=== PATIENT | male | born 1955 | race Caucasian/White ===

== ENCOUNTER 2020-06-25 06:54 | Outpatient (NON) | payer OTHER, SELFPAY ==
[2020-06-25 19:54] LABS: SARS-CoV-2 RNA PCR Negative
== END 2020-06-25 06:55 ==
LOC: ANHCOVIDDT 07:18
PROVIDERS: PCP Internal Medicine; Visit Provider Internal Medicine
DX: R68.89 Other general symptoms and signs (principal); Z20.828 Contact with and (suspected) exposure to other viral communicable diseases
CPT/HCPCS: 87635; C9803; U0003

== ENCOUNTER 2020-06-26 10:40 | Outpatient (CLI) | payer OTHER, SELFPAY ==
--- NOTE | ~2020-06-26 | XR_ITS ---
EXAMINATION: XR foot RT min 3V EXAM DATE: 06/26/2020 11:07 INDICATION: M79.676 - Pain in unspecified toe(s), PT Stubbed Toe X1-2 WK. Initial encounter. TECHNIQUE: Right foot dorsoplantar, lateral and oblique projections obtained and reviewed. There is no prior study for comparison. 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 The re are no acute fractures or dislocations identified. There is no subcutaneous gas. The soft tissue is unremarkable. There are no radiopaque foreign bodies. IMPRESSION: No acute osseous findings. Reviewed, dictated and finalized at location B. E AND WAGON DRIVER IMPRESSION: No acute osseous findings.
== END 2020-06-26 10:41 | disposition home or self-care (01) ==
LOC: ANHIMG 10:44
PROVIDERS: PCP Internal Medicine; Visit Provider Internal Medicine
DX: M19.071 Primary osteoarthritis, right ankle and foot (principal)
CPT/HCPCS: 73630

== ENCOUNTER 2020-08-12 12:09 | Outpatient (CLI) | payer OTHER, SELFPAY ==
--- NOTE | ~2020-08-12 | XR_ITS ---
EXAMINATION: XR chest 2V EXAM DATE: 08/12/2020 12:21 INDICATION: R05 - Cough, shortness of breath. TECHNIQUE: Frontal and lateral projections of the chest obtained and reviewed. Comparison is made to prior examination from 07/16/2019. FINDINGS: Linear right basilar scarring. The lungs are otherwise clear. There are no pleural effusio ns. The cardiomediastinal silhouette is within normal limits. There is no pneumothorax suspected. The bones and soft tissues are unremarkable. IMPRESSION: No acute cardiopulmonary findings. Reviewed, dictated and finalized at location B. MIZATION CONSULTANT
== END 2020-08-12 12:10 | disposition home or self-care (01) ==
PROVIDERS: PCP Internal Medicine; Visit Provider Internal Medicine
DX: R05 Cough (principal); R06.02 Shortness of breath; Z87.891 Personal history of nicotine dependence
CPT/HCPCS: 71046

== ENCOUNTER 2021-02-01 14:32 | Outpatient (CLI) | payer OTHER, SELFPAY ==
--- NOTE | ~2021-02-01 | CT_ITS ---
EXAMINATION: CT lung screening DATE: 02/01/2021 14:55 INDICATION: Personal history of tobacco dependence TECHNIQUE: Computed tomography (CT) of the chest was performed without intravenous contrast. The dose -length product was 135.90 mGy-cm. COMPARISON: None FINDINGS: Heart size is normal. No significant pleural or pericardial effusion. No thoracic lymphaden opathy. There is atherosclerosis of the aorta. There are a few scattered punctate calcified granuloma s. There is a 4 mm right lower lobe nodule, image 58. No endobronchial lesions. There are mild wedge-sha ped deformities of upper thoracic vertebra, likely chronic. No acute osseous abnormality. There are several liver cysts. Otherwise, the upper abdomen is grossly unremarkable. IMPRESSION: 1. Lung-RADS category 2: Benign appearance or behavior. Continue annual screening with noncontrast lo w-dose chest CT in 12 months. Reviewed, dictated and finalized at location B. IMPRESSION: 1. Lung-RADS category 2: Benign appearance or behavior. Continue annual screeni ng with noncontrast low-dose chest CT in 12 months.
== END 2021-02-01 14:33 | disposition home or self-care (01) ==
LOC: ANHIMG 14:35
PROVIDERS: PCP Internal Medicine; Visit Provider Nurse Practitioner
DX: Z87.891 Personal history of nicotine dependence (principal)
CPT/HCPCS: 71271

== ENCOUNTER → 2021-02-11 14:00 | Outpatient (REF) | payer OTHER, SELFPAY | LOC: ANHLAB 14:00 | PROVIDERS: PCP Internal Medicine; Visit Provider Nurse Practitioner | DX: C44.529 Squamous cell carcinoma of skin of other part of trunk (principal) | CPT/HCPCS: 88305 ==

== ENCOUNTER → 2021-03-25 10:50 | Outpatient (REF) | payer OTHER, SELFPAY | LOC: ANHLAB 10:50 | PROVIDERS: PCP Internal Medicine; Visit Provider Nurse Practitioner | DX: C44.529 Squamous cell carcinoma of skin of other part of trunk (principal) | CPT/HCPCS: 88305 ==

== ENCOUNTER 2021-08-26 09:30 | Observation (INO) | payer OTHER, SELFPAY ==
[2021-08-26] VITALS (12 sets, daily range): BP systolic 122–177; BP diastolic 68–96; PULSE 58–80; RESP 12–20; TEMP 36.3–37.1; O2SAT 92–100
--- NOTE | ~2021-08-26 | CT_ITS ---
EXAMINATION: CT abdomen pelvis wo con DATE: 08/26/2021 09:57 INDICATION: Inguinal pain. Hematuria. TECHNIQUE: Computed tomography (CT) of the abdomen and pelvis was performed without intravenous contr ast. Automated exposure control and iterative reconstruction technique were employed. The dose-length product was 834.94 mGy-cm. COMPARISON: CT pelvis 05/21/19, CT abdomen and pelvis 03/31/2016 FINDINGS: The visualized portions of the lung bases demonstrate mild atelectasis. No pleural effusion . The heart size is normal. There are coronary artery calcifications. No pericardial effusion. There are cysts in the liver measuring up to 7.9 cm. The gallbladder, spleen, pancreas, and adrenal glands are normal. There is a 15 mm cyst in right kidney. There is mild atrophy of left kidney. There is mod erate left hydronephrosis and hydroureter. There is a mass in distal left ureter measuring soft tissu e attenuation. The bladder is distended. There is dependent hyperdensity in the bladder, consistent w ith hematoma. The prostate is moderately enlarged. There are no dilated loops of bowel. The appendix is not visualized. There are no pathologically enlarged lymph nodes. There is prominent fat in left i nguinal canal that may be a hernia. There is a 3.4 x 2.8 cm presacral mass containing calcifications to the right of midline. There is no free intraperitoneal fluid. There is mild lumbar spondylosis and mild thoracic spondylosis. IMPRESSION: 1. Mass in distal left ureter, consistent with urothelial carcinoma. Mild atrophy of left kidney with moderate left hydronephrosis and hydroureter. 2. Dependent acute hematoma in the bladder. 3. 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 Reviewed, dictated and finalized at location B. MACHINE OPERATOR IMPRESSION: 1. Mass in distal left ureter, consistent with urothelial carcinoma. Mild atrop hy of left kidney with moderate left hydronephrosis and hydroureter. 2. Dependent acute hematoma in the bladder. 3. 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
--- NOTE | ~2021-08-26 | XR_ITS ---
EXAMINATION: XR retrograde pyelo w/stent BI EXAM DATE: 08/26/2021 15:55 INDICATION: Bilateral retrograde, left stent placement. Hematuria. Abnormal CT. TECHNIQUE: Fluoroscopy used during XR retrograde pyelo w/stent BI performed by Dr. Marco Antonio Dunham MD, urologist. The radiologist Wander Randall M.D. dictating this report of the image(s) available wa s not present for the procedure. Total fluoroscopic time of 188 seconds. The DAP for this procedure was 4.1 mGym2. A total of 216 images sent to PACS from the exam. Cine run(s) available for review. Correlation was made with CT same date. FINDINGS: Right ureter was cannulated, injected, is normal. No right-sided hydronephrosis. The left ureter was then cannulated and injected. There is a filling defect in the distal aspect of the ureter measuring about 8 mm. Proximal to the filling defect the left ureter is severely dilated. A left yamil ble-J ureteral stent was placed. Correlate with procedure note. IMPRESSION: Left distal ureteral intraluminal filling defect which could be transitional cell cancer. Severe left hydroureteronephrosis. Stent in position. Reviewed, dictated and finalized at location A. OSTRATEGY ARCHITECT DEVELOPER IMPRESSION: Left distal ureteral intraluminal filling defect which could be tra nsitional cell cancer. Severe left hydroureteronephrosis. Stent in position.
--- NOTE | 2021-08-26 09:49 | ED.MALEGU ---
HPI - Male Genitourinary General Chief complaint: Urogenital-Male Stated complaint: Blood in urine Time Seen by Provider: 08/26/21 09:45 Source: patient Mode of arrival: ambulatory Limitations: no limitations History of Present Illness HPI Narrative: Patient is a 66-year-old male complaining of blood in his urine accompanied by pressure in his bladder and dysuria that started this morning. Patient states that he has history of kidney stones. Patient denies any chest pain, shortness of breath, abdominal pain, nausea, vomiting, fever or chills. Patient denies any GI bleed. Related Data Allergies Allergy/AdvReac Type Severity Reaction Status Date / Time No Known Allergies Allergy Verified 08/26/21 10:13 Review of Systems Review of Systems: All systems reviewed & are unremarkable except as noted in HPI and below Constitutional: Constitutional: Denies body ache(s), Denies chills, Denies excessive sweating, Denies fatigue, Denies fever(s), Denies headache(s), Denies lethargy, Denies malaise, Denies weakness and Denies weight loss Eyes: Eyes: Denies blurry vision, Denies change in vision and Denies loss of vision ENT: Denies dizziness, Denies ear discharge, Denies headache(s), Denies lip swelling, Denies epistaxis, Denies nasal congestion, Denies neck pain, Denies throat swelling and Denies tongue swelling Cardiovascular: Cardiovascular: Denies chest pain, Denies chest pain at rest, Denies chest pain with activity, Denies diaphoresis, Denies rapid heart rate, Denies edema, Denies irregular heart rhythm, Denies lightheadedness, Denies palpitations, Denies dyspnea and Denies dyspnea on exertion Respiratory: Respiratory: Denies chest congestion, Denies cough, Denies hemoptysis, Denies dyspnea and Denies dyspnea on exertion Gastrointestinal: Gastrointestinal: Denies abdominal pain, Denies melena, Denies hematochezia, Denies diarrhea, Denies nausea, Denies vomiting and Denies hematemesis Musculoskeletal: Musculoskeletal: Denies abnormal gait, Denies deformity, Denies joint swelling, Denies limited range of motion, Denies neck pain and Denies numbness Neurologic: Denies Abnormal speech present, Denies abnormal gait, Denies confusion, Denies dizziness, Denies headache(s), Denies focal weakness, Denies loss of vision, Denies numbness, Denies Other visual disturbances, Denies Sensory deficit (Neuro) and Denies weakness Psychiatric: Psychiatric: Denies confusion, Denies depression, Denies auditory hallucinations, Denies homicidal ideation and Denies suicidal ideation Endocrine: Endocrine: Denies cold intolerance, Denies excessive sweating, Denies fatigue, Denies heat intolerance and Denies palpitations Hematologic/Lymphatic: Hematologic/Lymphatic: Denies easy bleeding and Denies easy bruising Allergic/Immunologic: Allergic/Immunologic: Denies lip swelling, Denies throat swelling and Denies tongue swelling PMFSH Past Medical History Medical History Hx of gout Family History Family History Father Carcinoma of colon Mother Patient's mother is Sibling Patient's sister is in good health Patient's sister is Patient's brother is in good health Patient's brother is Social History Social History Smoking packs per day: 1 Smoking cigarettes per day: 20.0 Years smoked: 1 Smoking pack-years: 1.00 Smoking status: Current every day smoker Tobacco type: cigarettes Second hand tobacco smoke exposure: Yes Alcohol intake: current Drinks per week: 20 Substance use: never Comments Past medical history: Hypertension, kidney stones Exam Const: General: cooperative, healthy appearing, comfortable, no acute distress, well developed, alert and awake; No confusion Orientation/consciousness: oriented to per
[2021-08-26 10:09] LABS: Basophils Absolute Auto 0.1 K/mm3 (0.0-0.1); Basophils Percent Auto 1.1 % (0.2-1.2); Eosinophils Absolute Auto 0.1 K/mm3 (0-0.3); Eosinophils Percent Auto 0.8 % (0-4.4); Hematocrit 45.9 % (42.0-52.0); Hemoglobin 15.8 g/dL (14.0-18.0); Immature Granulocyte Absolute 0.03 K/mm3 (0.00-0.031); Immature Granulocyte Percent A 0.4 % (0-0.5); Lymphocytes Absolute Auto 1.24 K/mm3 (0.9-3.2); Lymphocytes Percent Auto 17.4 % (18.3-44.2); Mean Corpuscular HGB Conc 34.4 g/dl (32-36); Mean Corpuscular Hemoglobin 33.2 pg (26-34); Mean Corpuscular Volume 96.4 fl (80-100); Mean Platelet Volume 9.7 fl (7.4-10.4); Monocytes Absolute Auto 0.7 K/mm3 (0.1-0.6); Monocytes Percent Auto 9.1 % (2.6-8.5); Neutrophils Absolute Auto 5.1 K/mm3 (1.3-6.7); Neutrophils Percent Auto 71.2 % (45.5-73.1); Nucleated Red Blood Cells Perc 0.4 % (0.0-0.2); Platelet Count Result 220 k/mm3 (150-375); Red Blood Count 4.76 M/mm3 (4.6-6.20); Red Cell Distribution Width 12.6 % (11.5-14.5); White Blood Count 7.1 K/mm3 (4.5-10.0)
[2021-08-26] MEDS: LACTATED RINGERS 1,000 ML 999 ML IV CONT (10:19)
[2021-08-26 10:22] LABS: INR 0.9; Partial Thromboplastin Time 28.2 SECONDS (22.3-36.8); Prothrombin Time 12.5 Seconds (11.1-14.7)
[2021-08-26 10:26] LABS: Alanine Aminotransferase 16 U/L (4-50); Albumin Level 4.5 g/dL (3.5-5.1); Alkaline Phosphatase 74 U/L (38-126); Anion Gap 10 mmol/L (8-16); Aspartate Amino Transferase 25 U/L (17-59); Bilirubin,Total 1.7 mg/dL (0.2-1.3); Blood Urea Nitrogen 25 mg/dL (9-20); Calcium 9.4 mg/dL (8.4-10.2); Carbon Dioxide 24 mmol/L (22-30); Chloride 104 mmol/L (98-107); Estimated CRCL calculation 44 ml/min; Estimated Glomerular Filt Rate 43; Glucose 106 mg/dL (65-110); Potassium 4.2 mmol/L (3.4-5.0); Sodium 138 mmol/L (137-145)
[2021-08-26 10:36] LABS: Add Urine Microscopic? YES; Appearance Urine Cloudy (Clear); Bilirubin Urine Negative (Negative); Blood Urine 3+ (Negative); Color Urine Red (Yellow); Glucose Urine UA Negative (Negative); Ketones Urine Negative (Negative); Leukocyte Esterase Ur Negative LEU/UL (Negative); Nitrate Urine Negative (Negative); Protein Urine 2+ mg/dL (Negative); RBC Urine >75 /hpf (0-2); Urobilinogen Urine Negative mg/dL (<2.0); WBC Clumps Urine Present /HPF; WBC Urine 31-50 /hpf
[2021-08-26] MEDS: LACTATED RINGERS 1,000 ML 125 ML IV CONT (13:00)
[2021-08-26] MEDS: PROMETHAZINE HCL 25 MG/ML AMPUL 12.5 MG IV PUSH (13:01)
[2021-08-26] MEDS: HYDROmorphone HCL INJ (*CRX) 1 MG/ML SYR 0.5 MG IV PUSH (13:07)
--- NOTE | 2021-08-26 13:16 | PM.IMHP ---
H&P: HPI History of Present Illness Date/Time: 08/26/21 13:16 this is a 66-year-old male patient to came to the emergency room today because he was having blood in his urine. The patient stated that several days ago he had blood in his urine but it cleared up. However today it did not clear up. The patient stated that he has had a history of kidney stones in the past study passed on his own. The patient is complaining of having pressure in his bladder area and difficulty urinating since this morning. The patient has not had any recent injury or on any blood thinners. Abdominal pelvis CT was read as the following 1. Mass in distal left ureter, consistent with urothelial carcinoma. Mild atrophy of left kidney with moderate left hydronephrosis and hydroureter. 2. Dependent acute hematoma in the bladder. 3. 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 Urology has been consulted and has already seen the patient. The patient was given IV fluids, Phenergan, Dilaudid and started on Ancef. The patient is being admitted to observation status on the date of service of 08/26/2021. Chief Complaint: Hematuria Review of Systems Review of Systems: All systems reviewed & are unremarkable except as noted in HPI and below Constitutional: Constitutional: Reports as per HPI and Reports no additional constitutional complaints Eyes: Eyes: Reports as per HPI and Reports no additional eye complaints ENT: Reports system reviewed and no additional complaints, except as documented and Reports Normal hearing present Cardiovascular: Cardiovascular: Reports no additional cardiovascular complaints Respiratory: Respiratory: Reports no additional respiratory complaints and Reports no additional respiratory complaints Gastrointestinal: Gastrointestinal: Reports as per HPI and Reports no additional gastrointestinal complaints Musculoskeletal: Musculoskeletal: Reports no additional musculoskeletal complaints Integumentary/Breasts: Skin/Breast: Reports system reviewed and no additional complaints, except as docu and Reports as per HPI Neurologic: Reports system reviewed and no additional complaints, except as documented, Reports as per HPI and Reports Normal hearing present Psychiatric: Psychiatric: Reports no additional psychiatric complaints and Reports as per HPI Endocrine: Endocrine: Reports no additional endocrine complaints Hematologic/Lymphatic: Hematologic/Lymphatic: Reports no additional hematologic/lymphatic complaints Allergic/Immunologic: Allergic/Immunologic: Reports no additional allergic/immunologic complaints FOR[facility]LY [facility] Past Medical History Medical History (Updated 08/26/21 @ 15:14 by Alysia Rees NP) Chest skin lesion Chronic back pain Chronic pain of both knees Elevated serum creatinine Essential (primary) hypertension History of colon polyps Hx of gout Hypothyroidism Medication monitoring encounter Mixed hyperlipidemia Squamous cell carcinoma of skin of chest Surgical History Surgical History (Updated 08/26/21 @ 15:14 by Alysia Rees NP) H/O arthroscopic knee surgery Left knee H/O rectal polypectomy History of appendectomy History of removal of pigmented skin lesion Hx of knee surgery Right leg surgery after impalement Family History Family History (Updated 08/26/21 @ 15:26 by Alysia Rees NP) Father Carcinoma of colon Mother Patient's mother is Sibling Patient's sister is Cancer Patient's brother is Cancer Social History Social History (Updated 08/26/21 @ 15:28 by Alysia Rees NP) Social History: The patient lives with his who is the durable power patent prosecution attorney for healthcare. The patient has 3 children. 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 The patient continues to smoke at least a pack a
[2021-08-26] MEDS: LACTATED RINGERS 1,000 ML 30 ML IV CONT ×2 (14:15→15:48)
--- NOTE | 2021-08-26 14:25 | WPDANESEPPF ---
Anes - Initial Pre Proc Eval Procedure: Operation Date: 08/26/21 15:15 Proposed Procedures p Cystoscopy, Evacuation Bladder Clot, Bilateral Retrograde Pyelogram, Left Ureteroscopy - Marco Antonio Dunham MD Date/Time: 08/26/21 14:25 Pre Op Diagnosis: Blood in urine Patient Data Age: 66 Gender: M Height: 1.83 m Weight: 100 kg Last Vital Signs Temp 36.3 C L 08/26/21 09:34 Pulse 80 08/26/21 12:20 Resp 14 08/26/21 12:20 BP 153/76 H 08/26/21 12:20 Pulse Ox 98 08/26/21 12:20 Allergies Allergy/AdvReac Type Severity Reaction Status Date / Time No Known Allergies Allergy Verified 08/26/21 14:17 Home Medications Medication Instructions Recorded Confirmed Type amlodipine 10 mg tablet See Rx Instructions .ROUTE 01/28/21 08/26/21 Rx .COMPLEX #90 tablet allopurinol 100 mg tablet 100 mg PO DAILY #90 tablet 03/16/21 08/26/21 Rx gabapentin 100 mg capsule 100 mg PO TID #90 cap 05/24/21 08/26/21 Rx levothyroxine 75 mcg tablet See Rx Instructions .ROUTE 08/09/21 08/26/21 Rx .COMPLEX #90 tablet atorvastatin 20 mg tablet 20 mg PO DAILY #90 tablet 08/12/21 08/26/21 Rx Laboratory Tests 08/26/21 08/26/21 08/26/21 10:01 10:01 10:01 WBC 7.1 K/mm3 K/mm3 (4.5-10.0) RBC 4.76 M/mm3 M/mm3 (4.6-6.20) Hgb 15.8 g/dL g/dL (14.0-18.0) Hct 45.9 % % (42.0-52.0) MCV 96.4 fl fl (80-100) MCH 33.2 pg pg (26-34) MCHC 34.4 g/dl g/dl (32-36) RDW 12.6 % % (11.5-14.5) Plt Count 220 k/mm3 k/mm3 (150-375) MPV 9.7 fl fl (7.4-10.4) Immature Gran % (Auto) 0.4 % % (0-0.5) Neut % (Auto) 71.2 % % (45.5-73.1) Lymph % (Auto) 17.4 % L % (18.3-44.2) Mcminn % (Auto) 9.1 % H % (2.6-8.5) Eos % (Auto) 0.8 % % (0-4.4) Baso % (Auto) 1.1 % % (0.2-1.2) Lymph # (Auto) 1.24 K/mm3 K/mm3 (0.9-3.2) Mcminn # (Auto) 0.7 K/mm3 H K/mm3 (0.1-0.6) Eos # (Auto) 0.1 K/mm3 K/mm3 (0-0.3) Baso # (Auto) 0.1 K/mm3 K/mm3 (0.0-0.1) Abs Immat Gran (auto) 0.03 K/mm3 K/mm3 (0.00-0.031) Absolute Neuts (auto) 5.1 K/mm3 K/mm3 (1.3-6.7) Absolute Nucleated RBC 0.0 K/mm3 K/mm3 (0.0-0.012) Nucleated RBC % 0.4 % H % (0.0-0.2) PT 12.5 Seconds Seconds (11.1-14.7) INR 0.9 APTT 28.2 SECONDS SECONDS (22.3-36.8) Sodium 138 mmol/L mmol/L (137-145) Potassium 4.2 mmol/L mmol/L (3.4-5.0) Chloride 104 mmol/L mmol/L (98-107) Carbon Dioxide 24 mmol/L mmol/L (22-30) Anion Gap 10 mmol/L mmol/L (8-16) BUN 25 mg/dL H mg/dL (9-20) Creatinine 1.60 mg/dL H mg/dL (0.7-1.3) Estim Creat Clear Calc 44 ml/min ml/min Estimated GFR 43 L (59 - ) Glucose 106 mg/dL mg/dL (65-110) Calcium 9.4 mg/dL mg/dL (8.4-10.2) Total Bilirubin 1.7 mg/dL H mg/dL (0.2-1.3) AST 25 U/L U/L (17-59) ALT 16 U/L U/L (4-50) Alkaline Phosphatase 74 U/L U/L (38-126) Total Protein 7.0 g/dL g/dL (6.3-8.2) Albumin 4.5 g/dL g/dL (3.5-5.1) Urine Color Urine Appearance Urine pH Ur Specific Filley Urine Protein Urine Glucose (UA) Urine Ketones Ur Blood (Man) Urine Nitrate Urine Bilirubin Urine Urobilinogen Leukocyte Esterase Rfl Urine RBC Urine WBC Urine WBC Clumps 08/26/21 10:01 WBC RBC Hgb Hct MCV MCH MCHC RDW Plt Count MPV Immature Gran % (Auto) Neut % (Auto) Lymph % (Auto) Mcminn % (Auto) Eos % (Auto) Baso % (Auto) Lymph #
--- NOTE | 2021-08-26 14:36 | PM.HPGS ---
History of Present Illness History of Present Illness Consent: Risks, benefits, and alternatives have been discussed and questions answered. Patient agrees to proceed with procedure. Chief complaint: Blood in urine Narrative: Travis Bello is a 66 year old male, without prior known urological history, presents to the ER today with progressively bloody urine. He says he 1st noticed this briefly approximately 12 days ago. This was not precipitated by identifiable injury or strain and was not associated with dysuria urgency frequency. He events he has started to pass some small clots which led to some abstract sense of obstruction and incomplete bladder emptying. He has no prior sense of difficulty voiding in past. Because of the darkened urine he presented to the ER where a CT scan of the abdomen and pelvis without contrast shows possible mass in his left distal ureter with left hydronephrosis and mild left renal atrophy. Bladder appears to be incomplete emptying and there was clot in the bladder. Review of Systems Cardiovascular: Cardiovascular: Denies chest pain, Denies lightheadedness, Denies palpitations and Denies dyspnea Respiratory: Respiratory: Denies dyspnea Gastrointestinal: Gastrointestinal: Denies diarrhea, Denies nausea and Denies vomiting Genitourinary: Genitourinary: Denies hematuria and Denies dysuria Endocrine: Endocrine: Denies palpitations PMFSH Past Medical History Medical History Hx of gout Surgical History Surgical History History of appendectomy Family History Family History Father Carcinoma of colon Mother Patient's mother is Sibling Patient's sister is in good health Patient's sister is Patient's brother is in good health Patient's brother is Social History Social History Smoking packs per day: 1 Smoking cigarettes per day: 20.0 Years smoked: 1 Smoking pack-years: 1.00 Smoking status: Current every day smoker Tobacco type: cigarettes Second hand tobacco smoke exposure: Yes Alcohol intake: current Drinks per week: 20 Substance use: never Meds Home Medications and Allergies Home Medications Medication Instructions Recorded Confirmed Type amlodipine 10 mg tablet See Rx Instructions .ROUTE 01/28/21 08/26/21 Rx .COMPLEX #90 tablet allopurinol 100 mg tablet 100 mg PO DAILY #90 tablet 03/16/21 08/26/21 Rx gabapentin 100 mg capsule 100 mg PO TID #90 cap 05/24/21 08/26/21 Rx levothyroxine 75 mcg tablet See Rx Instructions .ROUTE 08/09/21 08/26/21 Rx .COMPLEX #90 tablet atorvastatin 20 mg tablet 20 mg PO DAILY #90 tablet 08/12/21 08/26/21 Rx Allergies Allergy/AdvReac Type Severity Reaction Status Date / Time No Known Allergies Allergy Verified 08/26/21 14:17 Vital Signs Vital Signs - 24 hr 08/26/21 09:34 08/26/21 12:20 08/26/21 14:23 Temperature 97.4 F L 98.8 F Pulse Rate 77 80 68 Respiratory Rate 14 14 16 Blood Pressure 170/74 H 153/76 H 132/77 Pulse Oximetry 98 98 97 Exam Const: General: no acute distress Resp: Effort & Inspection: normal respiratory effort GI: Inspection: non-distended GI Palp: No abdominal tenderness and No Guarding due to palpation present (GI) Auscultation: normal bowel sounds Assessment and Plan Assessment and plan (1) Clot hematuria: Code(s): R31.0 - Gross hematuria Status: Acute (2) Mass of ureter: Code(s): N28.89 - Other specified disorders of kidney and ureter Status: Acute (3) Gross hematuria: Code(s): R31.0 - Gross hematuria Status: Acute Assessment and Plan: Cystoscopy with clot evacuation, bilateral retrograde pyelography with left ureteroscopy.
--- NOTE | 2021-08-26 14:39 | WPDHPUPDATE1 ---
History and Physical Update Update Date/Time: 08/26/21 14:39 History and Physical has been reviewed, including an updated exam of the patient. There are NO changes in the patient's condition. Risks, benefits, and alternatives have been discussed and questions answered. Patient agrees to proceed with procedure.
[2021-08-26] MEDS: ceFAZolin 2 GM/D5W 50 ML 2 GM/50 ML BAG IVPB (14:41)
[2021-08-26] MEDS: LIDOCAINE HCL 2% GEL UROJET 10 ML PKG MUCOUS MEM (15:00)
--- NOTE | 2021-08-26 15:42 | W.PM.PROC2 ---
Procedure Note - Detailed Date of Procedure 08/26/21 Pre-op Diagnosis Gross hematuria, clot urinary retention in possible left distal ureteral neoplasm Post-op Diagnosis other ( Gross hematuria clot urinary retention and urothelial neoplasm of the distal ureter) Procedure Performed Cystoscopy, clot evacuation, bilateral retrograde pyelogram, left ureteroscopy with biopsy and left ureteral stent placement Surgeon Marco Antonio Dunham MD Anesthesia general Description of Procedure Patient brought the office was prepped draped in routine sterile fashion while in dorsal lithotomy position. Cystoscopy is undertaken with a 21 F rigid cystoscope. There was no urethral stricture. He had moderate lateral lobe hyperplasia of the prostate with a 2.5 cm prostatic urethra. He has a small median lobe. Is a large clot in the dependent portion of bladder which was evacuated with an TUMI syringe. Bladder was then very carefully inspected and found to be without additional foreign body and there was no signs of neoplasm. The mucosa is without hyperemia. There was slight trabeculation without cellular diverticular formation. Is a single orthotopic ureteral orifice bilaterally. Right retrograde pyelography with an 8 F bulb-tip catheter shows no filling defects or points of obstruction. Left retrograde pyelography shows a wine glass filling defect in the distal ureter, consistent with urothelial neoplasm. 0.035 in glidewire was advanced into left renal pelvis and distal ureter was dilated with an 8 F 10 F dilator. Ureteroscopy was undertaken with both a semi-rigid in a 7.5 F digital flexible cystoscope. There was obvious urothelial neoplasm involving the distal ureter and extending to the sacral arcuate line. Biopsies were obtained with a disposable biopsy forceps. With proximal ureteroscopy the more proximal ureter and collecting system were endoscopically normal without evidence of hyperemia or neoplasm. Because of the patient's obstruction and ongoing hematuria I did opt to place a 4.8 F variable stent length ureteral stent with the proximal coil in the renal pelvis and distal coil in the bladder. Scopes and wires removed. I placed a 20 F 3-way catheter to continuous irrigation. Estimated Blood Loss 0 Drains Yes Packing No Pathology yes Complications No immediate complications Condition stable Disposition PACU
[2021-08-26] MEDS: fentaNYL CITRATE INJ (*CRX) 100 MCG/2 ML VIAL 25 MCG IV PUSH ×4 (17:03→17:28)
[2021-08-26] MEDS: HYDROcodone/acetaminophen (*CRX) 5-325 MG TABLET 1 TAB PO ×2 (19:15→23:43)
[2021-08-26 19:33] LABS: Hematocrit 40.9 % (42.0-52.0); Hemoglobin 13.9 g/dL (14.0-18.0)
[2021-08-26] MEDS: GABAPENTIN 100 MG CAPSULE PO (21:00)
[2021-08-26] MEDS: amLODIPine BESYLATE 5 MG TABLET 10 MG PO (21:11)
[2021-08-26] MEDS: allopurinoL 100 MG TABLET PO (21:11)
[2021-08-26] MEDS: ATORVASTATIN 20 MG TABLET PO (21:11)
[2021-08-26] MEDS: MORPHINE SULFATE (*CRX) 2 MG/ML INJ IV PUSH (21:19)
[2021-08-27 00:05] VITALS: BP 118/72; PULSE 60; RESP 20
[2021-08-27 01:36] LABS: Hemoglobin 13.3 g/dL (14.0-18.0)
[2021-08-27] MEDS: HYDROcodone/acetaminophen (*CRX) 5-325 MG TABLET 1 TAB PO (03:43)
[2021-08-27 04:00] VITALS: BP 110/70; PULSE 76; RESP 20
[2021-08-27 04:43] LABS: Basophils Absolute Auto 0.1 K/mm3 (0.0-0.1); Basophils Percent Auto 0.7 % (0.2-1.2); Eosinophils Absolute Auto 0.1 K/mm3 (0-0.3); Eosinophils Percent Auto 1.5 % (0-4.4); Hematocrit 38.9 % (42.0-52.0); Hemoglobin 13.5 g/dL (14.0-18.0); Immature Granulocyte Absolute 0.03 K/mm3 (0.00-0.031); Immature Granulocyte Percent A 0.4 % (0-0.5); Lymphocytes Absolute Auto 1.35 K/mm3 (0.9-3.2); Lymphocytes Percent Auto 18.4 % (18.3-44.2); Mean Corpuscular HGB Conc 34.7 g/dl (32-36); Mean Corpuscular Volume 95.1 fl (80-100); Mean Platelet Volume 9.7 fl (7.4-10.4); Monocytes Absolute Auto 0.7 K/mm3 (0.1-0.6); Monocytes Percent Auto 9.1 % (2.6-8.5); Neutrophils Absolute Auto 5.1 K/mm3 (1.3-6.7); Neutrophils Percent Auto 69.9 % (45.5-73.1); Platelet Count Result 192 k/mm3 (150-375); Red Blood Count 4.09 M/mm3 (4.6-6.20); Red Cell Distribution Width 12.5 % (11.5-14.5); White Blood Count 7.3 K/mm3 (4.5-10.0)
[2021-08-27 04:58] LABS: Alanine Aminotransferase 11 U/L (4-50); Albumin Level 3.5 g/dL (3.5-5.1); Alkaline Phosphatase 56 U/L (38-126); Anion Gap 5 mmol/L (8-16); Aspartate Amino Transferase 20 U/L (17-59); Bilirubin,Total 1.3 mg/dL (0.2-1.3); Blood Urea Nitrogen 17 mg/dL (9-20); Calcium 8.4 mg/dL (8.4-10.2); Carbon Dioxide 26 mmol/L (22-30); Chloride 104 mmol/L (98-107); Estimated CRCL calculation 41 ml/min; Estimated Glomerular Filt Rate 40; Glucose 91 mg/dL (65-110); Magnesium 1.9 mg/dL (1.6-2.3); Potassium 4.1 mmol/L (3.4-5.0); Sodium 135 mmol/L (137-145)
[2021-08-27 05:01] LABS: Lactic Acid Reflex 0.6 mmol/L (0.7-2.1)
--- NOTE | 2021-08-27 07:19 | WPDUROPN2 ---
Progress Note: A&P Assessment and Plan (1) Clot hematuria: Code(s): R31.0 - Gross hematuria Status: Acute (2) Mass of ureter: Code(s): N28.89 - Other specified disorders of kidney and ureter Status: Acute Assessment and Plan: Urine is perfectly clear this morning. Will stop CBI and plan a voiding trial later this morning. Await final ureteral biopsies. Follow-up discussion plan for next week. Subjective Subjective Date/Time Seen: 08/27/21 07:19 Other than mild catheter irritation, patient is doing well. 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 Review of Systems Cardiovascular: Cardiovascular: Denies chest pain, Denies lightheadedness, Denies palpitations and Denies dyspnea Respiratory: Respiratory: Denies dyspnea Gastrointestinal: Gastrointestinal: Denies diarrhea, Denies nausea and Denies vomiting Genitourinary: Genitourinary: Denies hematuria and Denies dysuria Endocrine: Endocrine: Denies palpitations Exam Const: General: no acute distress Resp: Effort & Inspection: normal respiratory effort GI: Inspection: non-distended GI Palp: No abdominal tenderness and No Guarding due to palpation present (GI) Auscultation: normal bowel sounds Objective Data Vital Signs Vital Signs: Vital Signs - 24 hr 08/26/21 09:34 08/26/21 12:20 08/26/21 14:23 Temperature 97.4 F L 98.8 F Pulse Rate 77 80 68 Respiratory Rate 14 14 16 Blood Pressure 170/74 H 153/76 H 132/77 Pulse Oximetry 98 98 97 08/26/21 15:48 08/26/21 16:00 08/26/21 16:15 Temperature 98.0 F Pulse Rate 76 60 58 L Respiratory Rate 14 14 12 Blood Pressure 177/92 H 168/93 H 155/96 H Pulse Oximetry 100 100 100 08/26/21 16:30 08/26/21 16:45 08/26/21 17:00 Temperature Pulse Rate 66 62 66 Respiratory Rate 12 14 14 Blood Pressure 158/92 H 169/95 H 151/89 H Pulse Oximetry 97 93 92 08/26/21 17:15 08/26/21 17:30 08/26/21 20:00 Temperature Pulse Rate 70 66 58 L Respiratory Rate 14 18 20 Blood Pressure 151/83 H 153/88 H 122/68 Pulse Oximetry 93 93 08/27/21 00:05 08/27/21 04:00 Temperature Pulse Rate 60 76 Respiratory Rate 20 20 Blood Pressure 118/72 110/70 Pulse Oximetry Intake/Output Intake/Output: Intake & Output 08/24/21 08/25/21 08/26/21 08/27/21 23:59 23:59 23:59 23:59 Intake Total 7300 Output Total 5900 Balance 1400 Meds/Results Medications: Active Medications Generic Name Dose Route Start Last Admin Trade Name Freq PRN Reason Stop Dose Admin Hydrocodone Bitart/Acetaminophen 1 tab 08/26/21 17:49 08/27/21 03:43 Hydrocodone/Acetaminophen (*Crx) 5-325 Mg Tablet PO 1 tab Q4H PRN Administration Pain Rated 1-6 Allopurinol 100 mg 08/26/21 21:00 08/26/21 21:11 Allopurinol 100 Mg Tablet PO 100 mg HS MICHAEL Administration Amlodipine Besylate 10 mg 08/26/21 21:00 08/26/21 21:11 Amlodipine Besylate 5 Mg Tablet PO 10 mg HS MICHAEL Administration Atorvastatin Calcium 20 mg 08/26/21 21:00 08/26/21 21:11 Atorvastatin 20 Mg Tablet PO 20 mg HS MICHAEL Administration Cephalexin HCl 500 mg 08/27/21 13:00 Cephalexin 500 Mg Capsule PO QID MICHAEL Docusate Sodium 100 mg 08/26/21 17:00 08/26/21 20:47 Docusate Sodium 100 Mg Capsule PO Not Given BID MICHAEL Gabapentin 100 mg 08/26/21 22:00 08/26/21 21:00 Gabapentin 100 Mg Capsule PO 100 mg Q8HR MICHAEL Administration Hyoscyamine 0.125 mg 08/26/21 17:49 Hyoscyamine Sulfate 0.125 Mg Tablet SUBLINGUAL Q6H PRN Bladder Spasm Morphine Sulfate 2 mg 08/26/21 17:49 08/26/21 21:19 Morphine Sulfate (*Crx) 2 Mg/Ml Inj IV PUSH 2 mg Q2H PRN Administration Pain Rated 7-10 Naloxone HCl 0.1 mg 08/26/21 17:49 Naloxone Hcl 0.4 Mg/Ml Vial IV PUSH Q2M PRN Opiate Reversal Ondansetron HCl 4 mg 08/26/21 17:49 Ondansetron Inj 4 Mg/2 Ml Vial IV PUSH Q12H PRN
[2021-08-27 07:34] VITALS: BP 137/66; PULSE 71; RESP 16; TEMP 36.9; O2SAT 94
[2021-08-27 07:40] VITALS: O2SAT 94
--- NOTE | 2021-08-27 07:48 | PM.IMPN ---
Progress Note: A&P Assessment and Plan (1) Mass of ureter: Code(s): N28.89 - Other specified disorders of kidney and ureter Status: Acute Assessment and Plan: 1. Mass in distal left ureter, consistent with urothelial carcinoma. Mild atrophy of left kidney with moderate left hydronephrosis and hydroureter. 2. Dependent acute hematoma in the bladder. 3. 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 Urology has been consulted. (2) Essential (primary) hypertension: Code(s): I10 - Essential (primary) hypertension Status: Chronic Assessment and Plan: Continue with amlodipine. Monitor blood pressure closely as patient is receiving pain medication. (3) Mixed hyperlipidemia: Code(s): E78.2 - Mixed hyperlipidemia Status: Chronic Assessment and Plan: Continue with atorvastatin. (4) Hypothyroidism: Code(s): E03.9 - Hypothyroidism, unspecified Status: Chronic Assessment and Plan: Continue with levothyroxine. (5) Chronic back pain: Code(s): M54.9 - Dorsalgia, unspecified; G89.29 - Other chronic pain Status: Chronic Assessment and Plan: Continue with gabapentin (6) Hx of gout: Code(s): Z87.39 - Personal history of other diseases of the musculoskeletal system and connective tissue Status: Acute Assessment and Plan: Continue with allopurinol Subjective Date/time seen: 08/27/21 07:48 Retrograde Pyelogram: Left distal ureteral intraluminal filling defect which could be transitional cell cancer. Severe left hydroureteronephrosis. Stent in position. Review of Systems Review of Systems: All systems reviewed & are unremarkable except as noted in HPI and below Constitutional: Constitutional: Reports as per HPI and Reports no additional constitutional complaints Eyes: Eyes: Reports as per HPI and Reports no additional eye complaints ENT: Reports system reviewed and no additional complaints, except as documented and Reports Normal hearing present Cardiovascular: Cardiovascular: Reports no additional cardiovascular complaints Respiratory: Respiratory: Reports no additional respiratory complaints and Reports no additional respiratory complaints Gastrointestinal: Gastrointestinal: Reports as per HPI and Reports no additional gastrointestinal complaints Musculoskeletal: Musculoskeletal: Reports no additional musculoskeletal complaints Integumentary/Breasts: Skin/Breast: Reports system reviewed and no additional complaints, except as docu and Reports as per HPI Neurologic: Reports system reviewed and no additional complaints, except as documented, Reports as per HPI and Reports Normal hearing present Psychiatric: Psychiatric: Reports no additional psychiatric complaints and Reports as per HPI Endocrine: Endocrine: Reports no additional endocrine complaints Hematologic/Lymphatic: Hematologic/Lymphatic: Reports no additional hematologic/lymphatic complaints Allergic/Immunologic: Allergic/Immunologic: Reports no additional allergic/immunologic complaints Exam Const: General: cooperative, healthy appearing, comfortable, no acute distress, well developed, alert, awake and Physically active Nutritional Appearance: average body habitus and well nourished Orientation/consciousness: oriented to person, oriented to place, oriented to time and patient oriented x3 Limitations: no limitations HENMT: Head: normal to inspection, No palpable skull fracture present, normocephalic and atraumatic Ears: hearing grossly normal bilaterally and external ears normal General nose exam: Normal external nose present Eyes: General: appearance normal, both eyes and all related structures Alignment and Position: alignment normal Periorbital: periorbital findings normal Eyelids: eyelids normal Conjunctivae: conjunctivae normal Sclera: sclerae normal Co
[2021-08-27] MEDS: GABAPENTIN 100 MG CAPSULE PO (08:45)
[2021-08-27] MEDS: DOCUSATE SODIUM 100 MG CAPSULE PO (08:45)
[2021-08-27 09:36] LABS: Hematocrit 40.8 % (42.0-52.0); Hemoglobin 14.2 g/dL (14.0-18.0)
--- NOTE | 2021-08-27 10:07 | PM.DS ---
DS: Admitting Diagnosis Discharge Date 08/27/2021 @1005 Admitting Diagnosis Gross hematuria DS: Discharge Diagnosis Discharge Diagnosis (1) Mass of ureter: Code(s): N28.89 - Other specified disorders of kidney and ureter Status: Acute (2) Gross hematuria: Code(s): R31.0 - Gross hematuria Status: Acute DS: Summary Hospital Course Hospital Course: Patient admitted through the ER with progressive hematuria. CT scan of the abdomen and pelvis without contrast suggested a neoplasm in his distal left ureter with clot in his bladder. That same day underwent cystoscopy with clot evacuation. Cystoscopy showed a normal bladder. Right retrograde pyelography was unremarkable. Left ureteroscopy, however, showed a neoplasm arising at the sacral arcuate line and extending to the left ureterovesical junction. The more proximal ureter collecting system were normal. Because he was obstructed I decided to place a left ureteral stent. He was watched overnight the following morning his catheter was removed. He voided clear urine. Arrangements will be made for consultation once the ureteral biopsies her available. Time Spent with Patient Time attestation: Total time spent providing and/or coordinating discharge services: 15min. Exam Const: General: no acute distress Resp: Effort & Inspection: normal respiratory effort GI: Inspection: non-distended GI Palp: No abdominal tenderness and No Guarding due to palpation present (GI) Auscultation: normal bowel sounds DS: Data Data Completed and Pending Pending studies at discharge: Pending at discharge 08/26/21 15:34 Surgical [PTH] Routine Labs on day of discharge: Labs from last 24 hours 08/27/21 08/27/21 08/27/21 09:30 04:26 04:26 WBC RBC Hgb 14.2 Hct 40.8 L MCV MCH MCHC RDW Plt Count MPV Immature Gran % (Auto) Neut % (Auto) Lymph % (Auto) Motley % (Auto) Eos % (Auto) Baso % (Auto) Lymph # (Auto) [place]ley # (Auto) Eos # (Auto) Baso # (Auto) Abs Immat Gran (auto) Absolute Neuts (auto) Absolute Nucleated RBC Nucleated RBC % PT INR APTT Sodium Potassium Chloride Carbon Dioxide Anion Gap BUN Creatinine Estim Creat Clear Calc Estimated GFR Glucose Lactic Acid 0.6 L Calcium Magnesium Total Bilirubin AST ALT Alkaline Phosphatase Total Protein Albumin TSH (Reflex) 2.750 Urine Color Urine Appearance Urine pH Ur Specific [place] Urine Protein Urine Glucose (UA) Urine Ketones Ur Blood (Man) Urine Nitrate Urine Bilirubin Urine Urobilinogen Leukocyte Esterase Rfl Urine RBC Urine WBC Urine WBC Clumps 08/27/21 08/27/21 08/27/21 04:26 04:26 01:32 WBC 7.3 RBC 4.09 L Hgb 13.5 L 13.3 L Hct 38.9 L 39.0 L MCV 95.1 MCH 33.0 MCHC 34.7 RDW 12.5 Plt Count 192 MPV 9.7 Immature Gran % (Auto) 0.4 Neut % (Auto) 69.9 Lymph % (Auto) 18.4 Motley % (Auto) 9.1 H Eos % (Auto) 1.5 Baso % (Auto) 0.7 Lymph # (Auto) 1.35 Motley # (Auto) 0.7 H Eos # (Auto) 0.1 Baso # (Auto) 0.1 Abs Immat Gran (auto) 0.03 Absolute Neuts (auto) 5.1 Absolute Nucleated RBC 0.0 Nucleated RBC % 0.0 PT INR APTT Sodium 135 L Potassium 4.1 Chloride 104 Carbon Dioxide 26 Anion Gap 5 L BUN 17 Creatinine 1.70 H Estim Creat Clear Calc 41 Estimated GFR 40 L Glucose 91 Lactic Acid Calcium 8.4 Magnesium 1.9 Total Bilirubin 1.3 AST 20 ALT 11 Alkaline Phosphatase 56 Total Protein 6.0 L Albumin 3.5 TSH (Reflex) Urine Color Urine Appearance Urine pH Ur Specific [place] Urine Protein Urine Glucose (UA) Urine Ketones Ur Blood (Man) Urine Nitrate Urine Bilirubin Urine Urobilinogen Leukocyte Esterase Rfl U
--- NOTE | 2021-08-27 18:38 | PM.EVENT ---
Event Note Event Note Event Note: Patient was discharged early this morning, PRIOR to Hospitalist seeing patient. Urologist completed H & P as well as patient's Discharge.
== END 2021-08-27 10:32 | disposition home or self-care (01) ==
LOC: ANHED 12:26 → ANHSUROVER 17:51 → ANHED 19:43 → ANHSUROVER 08-27 07:25
PROVIDERS: Nurse Practitioner; Urology; Admitting Provider Internal Medicine; Emergency Provider Emergency Medicine; PCP Internal Medicine; Visit Provider Internal Medicine
PROC: (CPT 52352; principal; 2021-08-26 15:15)
DX: N28.89 Other specified disorders of kidney and ureter (principal); R31.0 Gross hematuria; N13.39 Other hydronephrosis; I10 Essential (primary) hypertension; E03.9 Hypothyroidism, unspecified; E78.2 Mixed hyperlipidemia; M10.9 Gout, unspecified; M54.9 Dorsalgia, unspecified; G89.29 Other chronic pain; F17.210 Nicotine dependence, cigarettes, uncomplicated; E66.9 Obesity, unspecified; Z68.29 Body mass index [BMI] 29.0-29.9, adult
CPT/HCPCS: 52354; 52332; 36415; 74176; 74420; 80053; 81001; 83605; 83735; 84443; 85014; 85018; 85025; 85610; 85730; 87086; 87088; 88305; 96361; 96374; 96375; 99285; A9270; C1758; C1769; C1887; C2617; G0378; J0690; J1100; J1170; J2270; J2405; J2550; J2704; J3010; J7120; Q9966

== ENCOUNTER 2021-09-03 08:10 | Outpatient (CLI) | payer OTHER, SELFPAY ==
--- NOTE | ~2021-09-03 | NM_ITS ---
EXAMINATION: NM bone scan whole body DATE: 09/03/2021 13:57 INDICATION: Carcinoma of the left ureter TECHNIQUE: 25.7 mCi Tc-99m HDP was administered intravenously. Delayed whole-body scintigrams were o btained. COMPARISON: CT abdomen and pelvis dated 08/26/2021 FINDINGS: Mild likely degenerative joint centered uptake at the bilateral first metatarsophalangeal joints, qamar ateral mid feet and bilateral acromioclavicular joints. No other suspicious foci of abnormal bone upt denis. Asymmetric mild increased uptake at the left renal pelvis likely residual pelviectasis related t o reported carcinoma of the left ureter but not indicative of the same degree of hydronephrosis as on the prior CT likely related to interval ureteral stenting. Small focus of mild likely extravasated s oft tissue activity at the left antecubital fossa. IMPRESSION: 1. No evident osseous metastatic disease. Reviewed, dictated and finalized at location A. ING MACHINE OPERATOR
== END 2021-09-03 08:11 | disposition home or self-care (01) ==
LOC: ANHIMG 08:13
PROVIDERS: PCP Internal Medicine; Visit Provider Urology
DX: C66.2 Malignant neoplasm of left ureter (principal)
CPT/HCPCS: 78306; A9561

== ENCOUNTER 2021-09-21 09:48 | Outpatient (CLI) | payer OTHER, SELFPAY ==
--- NOTE | ~2021-09-21 | XR_ITS ---
EXAMINATION: XR chest 2V EXAM DATE: 09/21/2021 08:47 INDICATION: C67.9 - Malignant neoplasm of bladder, unspecified. TECHNIQUE: Frontal and lateral projections of the chest obtained and reviewed. Comparison is made to prior examination from 08/12/2020. FINDINGS: The lungs are hyperinflated which can be seen with chronic obstructive pulmonary disease ( a clinical diagnosis of functional impairment), but is not diagnostic of it. The lungs are clear. Th ere are no pleural effusions. The cardiomediastinal silhouette is within normal limits. There is no pneumothorax suspected. The bones and soft tissues are unremarkable. IMPRESSION: 1. No focal airspace disease. 2. Hyperinflation. Reviewed, dictated and finalized at location B. SS CLERK
--- NOTE | 2021-09-21 08:37 | ECG_ITS ---
Measurements Intervals [place] Rate: 69 P: 74 MS: 153 QRS: 35 QRSD: 90 T: 71 QT: 403 QTc: 433 Interpretive Statements SINUS RHYTHM ATRIAL PREMATURE COMPLEX EARLY PRECORDIAL R/S TRANSITION BASELINE ARTIFACT- I, II, AVR, AVF BORDERLINE ECG Electronically Signed On 09-21-2021 9:35:58 GAGE MAKER by Jerome Delgadillo D.O.
[2021-09-21 10:21] LABS: Add Urine Microscopic? YES; Appearance Urine Clear (Clear); Bilirubin Urine Negative (Negative); Blood Urine 2+ (Negative); Color Urine Yellow (Yellow); Glucose Urine UA Negative (Negative); Ketones Urine Negative (Negative); Leukocyte Esterase Ur 1+ LEU/UL (Negative); Mucus Urine Rare /lpf; Nitrate Urine Negative (Negative); Protein Urine 1+ mg/dL (Negative); RBC Urine >75 /hpf (0-2); Specific Grav Ur 1.018 (1.001-1.035); Urobilinogen Urine Negative mg/dL (<2.0)
== END 2021-09-21 09:49 | disposition home or self-care (01) ==
PROVIDERS: PCP Internal Medicine; Visit Provider Urology
DX: C67.9 Malignant neoplasm of bladder, unspecified (principal); R91.8 Other nonspecific abnormal finding of lung field; R94.31 Abnormal electrocardiogram [ECG] [EKG]
CPT/HCPCS: 36415; 71046; 81001; 86850; 86900; 86901; 93005

== ENCOUNTER 2021-09-23 00:35 | Day surgery (SDC) | payer OTHER, SELFPAY ==
[2021-09-15 09:17] VITALS: BMI 29.2
--- NOTE | 2021-09-15 09:38 | PC.NURSE ---
Report to the Outpatient Waiting Room, entrance under the green pavilion located off [facility], at time _0600_ on date _09/23/21_. OR Time: _0730__. - You will be asked a series of questions to screen for COVID 19 for your protection. - A mask is required within the hospital. - No visitors are allowed at this time. Preoperative COVID Testing Requirements: _NONE_ Patients may have clear liquids (water, carbonated beverages, clear teas, apple juice) until 3 hours prior to surgery with a maximum of 20 ounces. (0430 AM) - No food from midnight until time of surgery Take the following medications with a SIP of water the morning of surgery: _AMLODIPINE, GABAPENTIN, LEVOTHYROXINE_ Medications to discontinue per physician N/A Please no make-up, nail equatorial guinean, hairspray, perfume, deodorant, or body powder the day of surgery. No jewelry (including any body piercings) or valuables the day of surgery, leave them at home. Please take a shower or bath the night before, or the morning of, surgery with an antibacterial soap. Wear comfortable, loose fitting clothing. Children are encouraged to wear pajamas. - Jewelry must be removed prior to entering the operating room. Rings and piercings that are not removed may be cut off. - The hospital will not accept responsibility for valuables. - Please leave all valuables, including medications, at home the day of surgery. If you are going home after surgery, a licensed driver material handler must drive you home. - NO public transportation without another adult. - We recommend that an adult stay with you for 24 hours following discharge. - We also recommend that you do not drive, make important decision, drink alcoholic beverages, or take any drugs that were not prescribed by your health care provider for at least 24 hours after your discharge time. Follow any additional instructions given to you from DR. FITCH. Telephone instructions given to ___PT and asked if any additional questions and then verbalized understanding. Patient advised to call surgeon office or pre surgery nurse liaison, [facility] [phone] if any additional questions.
--- NOTE | 2021-09-20 07:30 | PM.IMHP ---
H&P: HPI History of Present Illness Date/Time: 09/20/21 07:30 66-year-old male, without prior significant urological history until recent presentation to the ER with gross hematuria that has been present intermittently for several months. Imaging in the ER demonstrated filling defect in the left distal ureter. He underwent cystoscopy with bilateral retrograde pyelography, left ureteroscopy in ureteral biopsy. This revealed a papillary urothelial neoplasm in involving the distal ureter below the iliac vessels. Ureteroscopy showed no identifiable neoplasm above the iliac vessels after careful evaluation of the entire collecting system and more proximal ureter. CT scan showed no evidence of metastatic lymphadenopathy and bone scan has been unremarkable. After discussion of therapeutic options he has elected for a robotic left distal ureterectomy with psoas hitch reimplantation and possible Ricardo flap. We will give him preoperative gemcitabine. He is aware of the risk of this procedure, including but not limited to, adverse cardiopulmonary events, recurrent urothelial neoplasm. Failure to control this neoplasm, need for possible open procedure and including possible left nephrectomy. He is also aware of the need of the catheter for several days postoperatively. Chief Complaint: Hematuria Review of Systems Cardiovascular: Cardiovascular: Denies chest pain, Denies lightheadedness, Denies palpitations and Denies dyspnea Respiratory: Respiratory: Denies dyspnea Gastrointestinal: Gastrointestinal: Denies diarrhea, Denies nausea and Denies vomiting Genitourinary: Genitourinary: Denies hematuria and Denies dysuria Endocrine: Endocrine: Denies palpitations PMFSH Past Medical History Medical History Chest skin lesion Chronic back pain Chronic pain of both knees Elevated serum creatinine Essential (primary) hypertension History of colon polyps Hx of gout Hypothyroidism Medication monitoring encounter Mixed hyperlipidemia Squamous cell carcinoma of skin of chest Surgical History Surgical History H/O arthroscopic knee surgery Left knee H/O rectal polypectomy History of appendectomy History of removal of pigmented skin lesion Hx of knee surgery Right leg surgery after impalement Family History Family History Father Carcinoma of colon Mother Patient's mother is Sibling Patient's sister is Cancer Patient's brother is Cancer Social History Social History Social History: The patient lives with his who is the durable power defense attorney for healthcare. The patient has 3 children. 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 The patient continues to smoke at least a pack a cigarettes a day. The patient admits to drinking wine or alcohol daily and the amount varies. Smoking packs per day: 1 Smoking cigarettes per day: 20.0 Years smoked: 1 Smoking pack-years: 1.00 Smoking status: Current every day smoker Tobacco type: cigarettes Second hand tobacco smoke exposure: Yes Additional smoking assessment comments: STATES QUIT FOR 35 YEARS & STARTED BACK ABOUT Alcohol intake: current Drinks per week: 20 Substance use: never Substance use type: does not use Spiritual care concerns: No Meds Home Medications and Allergies Home Medications Medication Instructions Recorded Confirmed Type allopurinol 100 mg tablet 100 mg PO DAILY #90 tablet 03/16/21 09/15/21 Rx gabapentin 100 mg capsule 100 mg PO TID #90 cap 05/24/21 09/15/21 Rx atorvastatin 20 mg tablet 20 mg PO DAILY #90 tablet 08/12/21 09/15/21 Rx amlodipine 10 mg DAILY 09/15/21 09/15/21 History levothyroxine 75 mcg QA
[2021-09-23] VITALS (14 sets, daily range): BP systolic 120–143; BP diastolic 67–79; PULSE 76–92; RESP 12–20; TEMP 36.4–36.9; O2SAT 92–98; BMI 29.0
--- NOTE | ~2021-09-23 | XR_ITS ---
EXAMINATION: XR abdomen/kub 1V DATE: 09/24/2021 07:06 INDICATION: Left ureteral stent TECHNIQUE: A supine view of the abdomen was obtained. COMPARISON: CT dated 08/30/2021 FINDINGS: Interval placement of a left internal ureteral stent with loops formed in expected position of the bl adder and left renal pelvis. Right lower quadrant surgical drain extends across the pelvis with the d istal tip projecting over the left iliac wing. There is gas scattered throughout nondilated loops of large and small bowel and connects with an ileus. IMPRESSION: 1. Left internal ureteral stent in expected position. 2. Multiple gas-filled but not dilated loops of bowel which could represent a postoperative ileus in the presence of a surgical drain in the pelvis. Reviewed, dictated and finalized at location A. SETTER IMPRESSION: 1. Left internal ureteral stent in expected position. 2. Multiple gas-filled but not dilated loops of bowel which could represent a p ostoperative ileus in the presence of a surgical drain in the pelvis.
--- NOTE | 2021-09-23 06:36 | WPDHPUPDATE1 ---
History and Physical Update Update Date/Time: 09/23/21 06:36 History and Physical has been reviewed, including an updated exam of the patient. There are NO changes in the patient's condition. Risks, benefits, and alternatives have been discussed and questions answered. Patient agrees to proceed with procedure.
[2021-09-23] MEDS: LACTATED RINGERS 1,000 ML 30 ML IV CONT ×2 (06:45→12:20)
--- NOTE | 2021-09-23 06:56 | WPDANESEPPF ---
Anes - Initial Pre Proc Eval Procedure: Operation Date: 09/23/21 07:30 Proposed Procedures p Robotic Assisted Left Distal Ureterectomy with Psoas Hitch Reimplantation, Possible Boari Flap, Left Pelvic Lymphadenectomy, Gemcitabine Instillation - Marco Antonio Dunham MD Date/Time: 09/23/21 06:56 Surgeon: Marco Antonio Dunham MD Pre Op Diagnosis: bladder cancer Patient Data Age: 66 Gender: M Height: 1.83 m Weight: 97.72 kg Allergies Allergy/AdvReac Type Severity Reaction Status Date / Time No Known Allergies Allergy Verified 09/15/21 09:14 Home Medications Medication Instructions Recorded Confirmed Type allopurinol 100 mg tablet 100 mg PO DAILY #90 tablet 03/16/21 09/15/21 Rx gabapentin 100 mg capsule 100 mg PO TID #90 cap 05/24/21 09/15/21 Rx atorvastatin 20 mg tablet 20 mg PO DAILY #90 tablet 08/12/21 09/15/21 Rx amlodipine 10 mg DAILY 09/15/21 09/15/21 History levothyroxine 75 mcg QAM 09/15/21 09/15/21 History Patient hx anesthesia problems: none Family hx anesthesia problems: none Results Review: All pre-operative results and documents have been reviewed as part of the pre-operative evaluation. [facility] Past Medical History Medical History Chest skin lesion Chronic back pain Chronic pain of both knees Elevated serum creatinine Essential (primary) hypertension History of colon polyps Hx of gout Hypothyroidism Medication monitoring encounter Mixed hyperlipidemia Squamous cell carcinoma of skin of chest Surgical History Surgical History H/O arthroscopic knee surgery Left knee H/O rectal polypectomy History of appendectomy History of removal of pigmented skin lesion Hx of knee surgery Right leg surgery after impalement Family History Family History Father Carcinoma of colon Mother Patient's mother is Sibling Patient's sister is Cancer Patient's brother is Cancer Social History Social History Social History: The patient lives with his who is the durable power regulatory attorney for healthcare. The patient has 3 children. 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 The patient continues to smoke at least a pack a cigarettes a day. The patient admits to drinking wine or alcohol daily and the amount varies. Smoking packs per day: 1 Smoking cigarettes per day: 20.0 Years smoked: 1 Smoking pack-years: 1.00 Smoking status: Current every day smoker Tobacco type: cigarettes Second hand tobacco smoke exposure: Yes Additional smoking assessment comments: STATES QUIT FOR 35 YEARS & STARTED BACK ABOUT Alcohol intake: current Drinks per week: 20 Substance use: never Substance use type: does not use Living arrangements: with family Spiritual care concerns: No Anes - Eval Final PreProcedure Day of Procedure 09/23/21 06:56 Patient weight: overweight Heart: regular rate and rhythm Lungs: clear to auscultation Airway: Mallampati scale class II Neurological: alert and oriented Last oral intake: >/= 8 hours ASA classification: III Emergent: no Anesthetic plan: proceed Anesthesia type and monitoring: general ETT and standard monitoring Results Review: All pre-operative results and documents have been reviewed as part of the pre-operative evaluation. Informed Consent: The patient's anesthetic plan and its attendant risks and benefits were discussed with the patient/family/POA. Questions were solicited and answers provided to the satisfaction of the patient/family/POA.
[2021-09-23] MEDS: ceFAZolin 2 GM/D5W 50 ML 2 GM/50 ML BAG IVPB (07:31)
[2021-09-23] MEDS: SODIUM CHLORIDE 0.9% IV 23.7 ML, GEMCITABINE HCL 1,000 MG BLADDER ×2 (08:07)
--- NOTE | 2021-09-23 10:09 | SUR.OPER ---
gemcitabine bladder instillation 0807 and drainage to carcamo bag with CBI running 0910 as per surgeons direction. 400ml of bladder content and CBI drainage in carcamo bag/carcamo clamped.
[2021-09-23] MEDS: ceFAZolin SODIUM 1 GM VIAL IV PUSH (11:22)
--- NOTE | 2021-09-23 12:15 | W.PM.PROC2 ---
Procedure Note - Detailed Date of Procedure 09/23/21 Pre-op Diagnosis Left ureteral cancer Post-op Diagnosis same Procedure Performed 1. Preoperative gemcitabine installation 2. Robotic assisted left distal ureterectomy with psoas hitch ureteral reimplantation 3. Robotic assisted, extended left pelvic lymphadenectomy. 4. Excision penile lesion Surgeon Marco Antonio Dunham MD Artist'S Representative Taye Santamaria HIDE BUFFER Anesthesia general Findings 1. Frozen section left distal ureter shows chronic ureteritis without dysplasia, carcinoma in-situ or bin malignancy 2. No evidence of gross extra ureteral neoplasm Description of Procedure Patient is brought the op suite prepped draped in routine sterile fashion while in a dorsal lithotomy position after the uneventful induction of a general endotracheal anesthetic. A [address] catheter was placed in the bladder 2gm of gemcitabine in 100 cth of instilled in the bladder and allowed to stand for 1 hour. Bladder was then hooked to continuous irrigation to irrigate the gemcitabine prior to opening the bladder during the remainder the procedure. Varies needle is placed through a supra umbilical incision insufflation is undertaken. [place] trocars were placed in the right lower quadrant, a 3rd robotic trocar in left lower quadrant in addition to a 12 mm bakery assistant port. Lastly, a 5 mm trocars placed in left upper quadrant to be used for suction. The descending colon is mobilized medially by incising the white line of Toldt. The left ureter is identified approximately 10 cm above point where it crosses the common iliac artery. Dissection areas carried out to the left ureterovesical junction with care taken to avoid compromise to the ureteral blood supply. Anterior vesicular artery was identified and cauterized extensively prior to transection. Full dissection to the ureterovesical junction is undertaken without incident. The proximal extent of the anticipated urothelial neoplasm is identified and Weck clips were placed. Frozen section of that site shows mild chronic ureteral it is without dysplasia, carcinoma in-situ or urothelial carcinoma. The gemcitabine has been drained from the bladder and continuous irrigation has been undertaken for an extended period time. At this point the bladder was opened and a wide cuff is obtained. The bladder cuff is grossly normal. The vesicotomy was closed in 2 layers with running 2-0 Vicryl. Bladder was dropped by incising the peritoneum lateral to the umbilical ligaments. Bladder was widely mobilized so as to allow for a hitch to the left psoas muscle later in the procedure. An extended left pelvic lymphadenectomy was undertaken. The limits of this are the bifurcation is common iliac artery proximally, the genitofemoral nerve laterally, the inguinal ligament distally and the obturator nerve posteriorly. The obturator nerve was identified and preserved throughout. Copious irrigation is undertaken in the pelvis with saline. Psoas hitch is obtained by securing the dome of the bladder it 3 sites to the psoas fascia. This is done with a #1 PDS with care taken to avoid any placement of sutures deep in the psoas muscle. ureterovesical anastomosis was undertaken across a 6 F variable length stent a combination of running and interrupted 4-0 Vicryl. JESUS drain is placed in the pelvis and secured with a nylon. Estimated blood loss was 50 cc. At the termination of the procedure I did excise a penile lesion which the patient had requested preoperatively. That site was closed 4-0 Vicryl subcuticular, as was all the trocar site. Estimated Blood Loss 50 Drains Yes Packing No Pathology yes Complications No immediate complications Condition stable Disposition PACU
[2021-09-23] MEDS: fentaNYL CITRATE INJ (*CRX) 100 MCG/2 ML VIAL 25 MCG IV PUSH ×6 (12:19→13:22)
--- NOTE | 2021-09-23 14:04 | ADMGEN ---
This patient, Travis Bello, was admitted to [facility] Surgery-3. Patient oriented to hospital policies and general routines including ID bracelet, bed and alarms, visiting hours, pain management, procedures, bathroom and other care routines, personal items, smoking policy, room service/diet, and visiting hours. Information on how to activate the Rapid Response Team has been discussed. Patient is encouraged to report perceived risks to care and to ask questions if they do not understand what they are told or what they should do.
[2021-09-23] MEDS: LACTATED RINGERS 1,000 ML 125 ML IV CONT ×2 (14:18→23:30)
[2021-09-23] MEDS: GABAPENTIN 100 MG CAPSULE PO ×2 (14:52→21:47)
[2021-09-23] MEDS: KETOROLAC 15 MG/ML VIAL (*BKC) IV PUSH ×2 (15:02→21:13)
[2021-09-24 00:05] VITALS: RESP 20
[2021-09-24] MEDS: KETOROLAC 15 MG/ML VIAL (*BKC) IV PUSH ×2 (03:08→09:24)
[2021-09-24 05:00] VITALS: BP 137/79; PULSE 74; RESP 20; TEMP 37.2; O2SAT 93
[2021-09-24 05:35] LABS: Hematocrit 38.9 % (42.0-52.0)
[2021-09-24 05:45] LABS: Anion Gap 2 mmol/L (8-16); Blood Urea Nitrogen 21 mg/dL (9-20); Calcium 8.5 mg/dL (8.4-10.2); Carbon Dioxide 24 mmol/L (22-30); Chloride 108 mmol/L (98-107); Estimated CRCL calculation 47 ml/min; Estimated Glomerular Filt Rate 47; Glucose 96 mg/dL (65-110); Sodium 134 mmol/L (137-145)
[2021-09-24] MEDS: GABAPENTIN 100 MG CAPSULE PO (06:24)
[2021-09-24] MEDS: LEVOTHYROXINE SODIUM 75 MCG TABLET PO (06:24)
--- NOTE | 2021-09-24 06:50 | WPDUROPN2 ---
Progress Note: A&P Assessment and Plan (1) Cancer of left ureter: Code(s): C66.2 - Malignant neoplasm of left ureter Status: Acute Assessment and Plan: Doing well POD #1 - comfortable and tolerating diet. Will check JESUS drainage for creat. - remove if no sings of urine. KUB for stent position. Likely home later today. Subjective Subjective Date/Time Seen: 09/24/21 06:50 Comfortable, minimal abd. discomfort and tolerating regular diet Review of Systems Cardiovascular: Cardiovascular: Denies chest pain, Denies lightheadedness, Denies palpitations and Denies dyspnea Respiratory: Respiratory: Denies dyspnea Gastrointestinal: Gastrointestinal: Denies abdominal pain, Denies diarrhea, Denies nausea and Denies vomiting Genitourinary: Genitourinary: Denies hematuria and Denies dysuria Endocrine: Endocrine: Denies palpitations Exam Const: General: no acute distress Resp: Effort & Inspection: normal respiratory effort GI: Inspection: non-distended GI Palp: No abdominal tenderness and No Guarding due to palpation present (GI) Auscultation: normal bowel sounds and other (passing flatus) Objective Data Vital Signs Vital Signs: Vital Signs - 24 hr 09/23/21 12:10 09/23/21 12:25 09/23/21 12:40 Temperature 97.6 F Pulse Rate 92 88 82 Respiratory Rate 13 18 15 Blood Pressure 131/77 137/75 136/72 Pulse Oximetry 97 98 94 09/23/21 12:55 09/23/21 13:10 09/23/21 13:25 Temperature Pulse Rate 82 85 82 Respiratory Rate 12 13 14 Blood Pressure 136/72 136/72 143/77 H Pulse Oximetry 95 95 94 09/23/21 13:40 09/23/21 13:55 09/23/21 14:25 Temperature 97.7 F 97.7 F 97.6 F Pulse Rate 84 84 83 Respiratory Rate 18 18 18 Blood Pressure 141/79 H 141/79 H 133/79 Pulse Oximetry 95 95 96 09/23/21 15:19 09/23/21 15:54 09/23/21 18:32 Temperature 97.8 F 97.8 F Pulse Rate 80 80 80 Respiratory Rate 16 16 18 Blood Pressure 131/77 130/72 Pulse Oximetry 96 96 97 09/23/21 22:00 09/24/21 00:05 09/24/21 05:00 Temperature 98.9 F Pulse Rate 76 74 Respiratory Rate 20 20 20 Blood Pressure 120/67 137/79 Pulse Oximetry 92 93 Intake/Output Intake/Output: Intake & Output 09/21/21 09/22/21 09/23/21 09/24/21 23:59 23:59 23:59 23:59 Intake Total 3350 100 Output Total 1360 1940 Balance 1989 -1839 Meds/Results Medications: Active Medications Generic Name Dose Route Start Last Admin Trade Name Freq PRN Reason Stop Dose Admin Hydrocodone Bitart/Acetaminophen 1 tab 09/24/21 06:41 Hydrocodone/Acetaminophen (*Crx) 5-325 Mg Tablet PO Q6H PRN Pain Rated 4-6 Hydrocodone Bitart/Acetaminophen 2 tab 09/24/21 06:41 Hydrocodone/Acetaminophen (*Crx) 5-325 Mg Tablet PO Q6H PRN Pain Rated 7-10 Allopurinol 100 mg 09/24/21 09:00 Allopurinol 100 Mg Tablet PO DAILY MICHAEL Amlodipine Besylate 10 mg 09/24/21 09:00 Amlodipine Besylate 5 Mg Tablet PO DAILY MICHAEL Atorvastatin Calcium 20 mg 09/24/21 09:00 Atorvastatin 20 Mg Tablet PO DAILY MICHAEL Gabapentin 100 mg 09/23/21 14:00 09/24/21 06:24 Gabapentin 100 Mg Capsule PO 100 mg Q8HR MICHAEL Administration Hyoscyamine 0.125 mg 09/23/21 13:40 Hyoscyamine Sulfate 0.125 Mg Tablet SUBLINGUAL Q4H PRN Bladder Spasm Lactated Ringer's 1,000 mls @ 125 mls/hr 09/23/21 13:40 09/23/21 23:30 Lr - Lactated Ringers Iv IV CONT 125 mls/hr .Q8H MICHAEL Administration Ketorolac Tromethamine 15 mg 09/23/21 13:40 09/24/21 03:08 Ketorolac 15 Mg/Ml Vial (*Bkc) IV PUSH 09/24/21 13:39 15 mg Q6H PRN Administration Pain Rated 4-6 Levofloxacin 500 mg 09/24/21 09:00 Levofloxacin 500 Mg Tablet PO DAILY MICHAEL Levothyroxine Sodium 75 mcg 09/24/21 06:30 09/24/21 06:24 Levothyroxine Sodium 75 Mcg Tablet PO 75 mcg DAILY@0630 MICHAEL Administration Naloxone HCl 0.1 mg 09/23/21 13:40 Naloxone Hcl 0.4 Mg/Ml Vial IV PUSH Q2M PRN Opiate Re
[2021-09-24 08:14] LABS: Creatinine Urine < 3.2 mg/dL
[2021-09-24] MEDS: amLODIPine BESYLATE 5 MG TABLET 10 MG PO (08:25)
[2021-09-24] MEDS: levoFLOXacin 500 MG TABLET PO (08:25)
[2021-09-24] MEDS: ATORVASTATIN 20 MG TABLET PO (08:25)
[2021-09-24] MEDS: allopurinoL 100 MG TABLET PO (08:25)
[2021-09-24] MEDS: LACTATED RINGERS 1,000 ML 125 ML IV CONT (08:26)
--- NOTE | 2021-09-24 11:40 | PM.DS ---
DS: Admitting Diagnosis Discharge Date 09/24/2021 @ 11:40am Admitting Diagnosis Left ureteral cancer DS: Discharge Diagnosis Discharge Diagnosis (1) Cancer of left ureter: Code(s): C66.2 - Malignant neoplasm of left ureter Status: Acute DS: Summary Hospital Course Hospital Course: Patient was recently seen after and ER presentation for gross hematuria. Upper tract imaging, cystoscopy and ureteroscopy revealed findings of a neoplasm in his left distal ureter without evidence more proximal extension or metastatic disease. After discussion of options he elected for robotic distal ureterectomy with ureteral reimplantation. This procedure was undertaken on the day of admission without difficulty or complications. His postoperative course was uneventful. By the evening of the procedure was tolerating regular diet. Following morning he was ambulating. His urine remained clear throughout. He did have a JESUS drain in but fluid dropped off precipitously and there was no significant creatinine to suggest a urine leak. KUB showed his left ureteral stent to be in good position. The discharged with an indwelling catheter plans to follow-up in 1 week with a cystogram. Time Spent with Patient Time attestation: Total time spent providing and/or coordinating discharge services: 15 min. Exam Const: General: no acute distress Resp: Effort & Inspection: normal respiratory effort GI: Inspection: non-distended GI Palp: No abdominal tenderness and No Guarding due to palpation present (GI) Auscultation: normal bowel sounds Urinary Catheter: Urinary Catheter: patent and draining and urine clear DS: Data Data Completed and Pending Pending studies at discharge: Pending at discharge 09/23/21 09:18 Surgical [PTH] Routine Labs on day of discharge: Labs from last 24 hours 09/24/21 09/24/21 09/24/21 06:50 05:18 05:18 Hgb 13.0 L Hct 38.9 L Sodium 134 L Potassium 4.0 Chloride 108 H Carbon Dioxide 24 Anion Gap 2 L BUN 21 H Creatinine 1.50 H Estim Creat Clear Calc 47 Estimated GFR 47 L Glucose 96 Calcium 8.5 Urine Creatinine < 3.2 Discharge Plan Discharge Patient Disposition: Home, Self-Care Discharge Instructions: 1) Grubbs catheter -> leg bag / bedside bag at night. 2) No lifting/straining >15lbs. x3 weeks. 3) No driving x1-week. 4) Resume normal, pre-operative diet. 5) My office will contact regarding follow-up in 1-week with cystogram. 6) Remove right lower quadrant dressing around noon on 09/25/21 -> than may shower Stand Alone Forms: General Discharge Instructions Discharge Orders: Discharge Order (Routine); Ordered 09/24/21 Ordered By: Marco Antonio Dunham Discharge Medications: New hydrocodone-acetaminophen 5-325 mg tablet 1 - 2 tablet PO Q6H PRN (Reason: pain) Qty: 30 RF: 0 sulfamethoxazole-trimethoprim 800-160 mg tablet 1 tablet PO Q12H Qty: 8 RF: 0 Continued levothyroxine 75 mcg tablet 75 mcg QAM RF: 0 amlodipine 10 mg tablet 10 mg DAILY RF: 0 allopurinol 100 mg tablet 100 mg PO DAILY Qty: 90 RF: 1 gabapentin 100 mg capsule 100 mg PO TID Qty: 90 RF: 2 atorvastatin 20 mg tablet 20 mg PO DAILY Qty: 90 RF: 1
== END 2021-09-24 12:40 | disposition home or self-care (01) ==
LOC: ANHSURGERY 05:48 → ANHSUROVER 17:20
PROVIDERS: PCP Internal Medicine; Visit Provider Urology
PROC: (CPT 50949; principal; 2021-09-23 07:30)
DX: C66.2 Malignant neoplasm of left ureter (principal); N28.89 Other specified disorders of kidney and ureter; A63.0 Anogenital (venereal) warts; I88.8 Other nonspecific lymphadenitis; I10 Essential (primary) hypertension; E03.9 Hypothyroidism, unspecified; E78.2 Mixed hyperlipidemia; M10.9 Gout, unspecified; F17.210 Nicotine dependence, cigarettes, uncomplicated
CPT/HCPCS: 51720; 38571; 54060; 50947; 36415; 74018; 80048; 82570; 85014; 85018; 88305; 88307; 88312; 88331; A9270; C1769; C2617; J0131; J0690; J1100; J1170; J1885; J2250; J2405; J2704; J2710; J3010; J7030; J7120; J9201; Q9968

== ENCOUNTER 2021-10-01 07:19 | Outpatient (CLI) | payer OTHER, SELFPAY ==
--- NOTE | ~2021-10-01 | XR_ITS ---
EXAMINATION: XR cystogram DATE: 10/01/2021 07:56 INDICATION: Carcinoma of the left ureter TECHNIQUE: Water-soluble contrast was gravity-infused through the patient's Grubbs catheter. Multiple fluoroscopic images were obtained. Fluoroscopy exposure time was 1.3 minutes. The AP for this procedu re was 32.5 Gycm2. COMPARISON: None. FINDINGS: A left internal ureteral stent is in expected position. The bladder contour is normal. No c ontrast extravasation is identified. There is reflux of contrast into the left renal collecting syste m and around the internal ureteral stent. Phleboliths are noted in the pelvis. IMPRESSION: 1. No evidence of bladder leak. Reviewed, dictated and finalized at location A. HOSPICE RN
== END 2021-10-01 07:20 | disposition home or self-care (01) ==
PROVIDERS: PCP Internal Medicine; Visit Provider Urology
DX: C61 Malignant neoplasm of prostate (principal); C66.2 Malignant neoplasm of left ureter
CPT/HCPCS: 51600; 74430; Q9967

== ENCOUNTER 2022-07-27 09:25 | Outpatient (CLI) | payer OTHER, SELFPAY ==
--- NOTE | 2022-07-27 11:00 | NEURO_ITS ---
Impression: # Complains of numbness of hands. # Bilateral ulnar neuropathy across the elbows, right more than left. # Bilateral mild Carpal Tunnel Syndrome. # Needle/EMG exam mildly neurogenic in right 1st DI and ADM. Motor Nerve Conduction Upper Extremities Median Nerve Conduction Velocity (m/sec) Terminal Latency (msec) Response Voltage(mV) Elbow-Wrist Wrist Elbow Wrist Right 60 4.1 2 2 Left 54 4.1 2 3 Ulnar Nerve Conduction Velocity (m/sec) Terminal Latency (msec) Response Voltage(mV) Above Elbow Below Elbow Wrist Above Elbow Below Elbow Wrist Right 46 59 2.6 2 4 5 Left 52 62 2.3 4 4 5 F-Wave Latency Median (ms) Ulnar (ms) Right 30.2 32.6 Left 30.9 31.2 Sensory Nerve Conduction Upper Extremities Median Nerve Stimulation Terminal Latency (msec) Wrist/Digit Response Voltage (uV) Wrist Right 3.5/3.8 17/19 Left 4.0/4.7 12/11 Ulnar Nerve Stimulation Terminal Latency (msec) Wrist/Digit Response Voltage (uV) Wrist Right 2.1 36 Left 2.6 23 Radial Nerve Terminal Latency (msec) Response Voltage(mV) Right 2.6 16 Left 2.2 13 Left Right Muscles Examined Fibrillation Fasciculation Scarcity Voltage Duration Left Right Left Right Left Right Left Right Left Right Deltoid Biceps X X Brachioradialis Triceps X X Pronator Teres X X Ext Indicis X X Ext Digitorum X X Abd Poll Brev X X 1st Dorsal Interosseus Reduced >12ms X X Abd Dig Min Reduced >12ms MTDD
== END 2022-07-27 09:26 | disposition home or self-care (01) ==
PROVIDERS: PCP Internal Medicine; Visit Provider Internal Medicine
DX: R20.2 Paresthesia of skin (principal); G56.03 Carpal tunnel syndrome, bilateral upper limbs; G56.23 Lesion of ulnar nerve, bilateral upper limbs
CPT/HCPCS: 95886; 95911

== ENCOUNTER 2022-08-16 06:50 | Outpatient (CLI) | payer OTHER, SELFPAY ==
--- NOTE | ~2022-08-16 | XR_ITS ---
EXAMINATION: XR chest 2V DATE: 08/16/2022 07:16 INDICATION: Carcinoma of left ureter. TECHNIQUE: Frontal and lateral views of the chest were obtained. COMPARISON: Chest 2 views 09/21/2021, CT abdomen and pelvis 08/26/2021 FINDINGS: There is mild atelectasis at right lung base. No pleural effusion or pneumothorax. The hear t size is normal. IMPRESSION: 1. Mild atelectasis at right lung base. Reviewed, dictated and finalized at location A. RA REPAIRER
--- NOTE | ~2022-08-16 | CT_ITS ---
EXAMINATION: CT abdomen pelvis wo/w con DATE: 08/16/2022 07:43 INDICATION: Left ureteral carcinoma. TECHNIQUE: Computed tomography (CT) of the abdomen and pelvis was performed without and with intraven ous contrast using a total of 130 mL Omnipaque-350 intravenous contrast with a double-bolus technique for simultaneous opacification of the renal parenchyma and renal collecting system. Automated exposu re control and iterative reconstruction technique were employed. The dose-length product was 2831.95 mGy-cm. COMPARISON: CT abdomen and pelvis 08/26/2021, 03/31/16 FINDINGS: The visualized portions of the lung bases demonstrate mild atelectasis. No pleural effusion. The hear t size is normal. There are coronary artery calcifications. No pericardial effusion. There are cysts in the liver measuring up to 8.7 cm. The spleen, pancreas, and adrenal glands are normal. There is mi ld atrophy of left kidney. There are cysts in the kidneys measuring up to 1.9 cm on the right. There is no urolithiasis. The right ureter is well opacified and is normal. There is partial duplication of the left ureter, which is reimplanted at the superior bladder. There is a punctate focus of gas in the left renal collecting system in the upper pole. The bladder is normal. The prostate is moderately enlarged. There is a 5.9 x 2.8 x 2.7 cm presacral mass with calcifications with involvement of the r ight S5 neural foramen. There are no dilated loops of bowel. The appendix is not visualized. There ar e no pathologically enlarged lymph nodes. There is no free intraperitoneal fluid. There is a left ing uinal hernia containing fat. There is mild thoracolumbar spondylosis. IMPRESSION: 1. Mild atrophy of left kidney with reimplanted left ureter. No evidence of malignancy. 2. 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 The differential diagnosis includes peripheral nerve sheath tumor, teratoma, and venous malformation. Reviewed, dictated and finalized at location A. ULTING PRACTICE MANAGER IMPRESSION: 1. Mild atrophy of left kidney with reimplanted left ureter. No evidence of mal ignancy. 2. 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 The differential diagnosis inc ludes peripheral nerve sheath tumor, teratoma, and venous malformation.
[2022-08-16 07:26] LABS: Estimated Glomerular Filt Rate 40
== END 2022-08-16 06:51 | disposition home or self-care (01) ==
PROVIDERS: PCP Internal Medicine; Visit Provider Urology
DX: C66.2 Malignant neoplasm of left ureter (principal); R91.8 Other nonspecific abnormal finding of lung field
CPT/HCPCS: 71046; 74178; Q9967

== ENCOUNTER 2022-09-07 12:43 | Outpatient (CLI) | payer OTHER, SELFPAY ==
--- NOTE | ~2022-09-07 | MR_ITS ---
MRI of the lumbar spine Clinical History: Back pain Technique: Axial T2-weighted images, and sagittal T1-weighted, T2-weighted, and T2 fat-sat images wer e acquired. Findings: There is no fracture or subluxation of the lumbar spine. Vertebral bodies maintain normal h eight and alignment. No focal bone marrow signal reality seen. At L1-L2, L2-L3, L3-L4, there are mild facet joint degenerative changes. No disc bulge or herniation T levels. No spinal canal stenosis or neural foraminal narrowing at these levels. At L4-L5, there is disc bulge and facet arthropathy, which result in mild thecal sac compression. The re is mild right neural foraminal narrowing and erpy-ca-cozaggof left neural foraminal narrowing. At L5-S1, there is minimal disc bulge and mild facet arthropathy. No bin spinal canal stenosis. The re is mild to moderate bilateral neural foraminal narrowing. Paravertebral soft tissues are unremarkable. Impression: Mild degenerative spondylosis, as detailed above. Reviewed, dictated and finalized at [facility]. HRAGM BUILDER Impression: Mild degenerative spondylosis, as detailed above.
== END 2022-09-07 12:44 | disposition home or self-care (01) ==
PROVIDERS: PCP Internal Medicine; Visit Provider Nurse Practitioner Adult Health
DX: M47.816 Spondylosis without myelopathy or radiculopathy, lumbar region (principal)
CPT/HCPCS: 72148

== ENCOUNTER 2023-02-02 10:34 | Outpatient (CLI) | payer OTHER, SELFPAY ==
--- NOTE | 2023-02-04 12:13 | P.PCNPFT_ITS ---
PFT Procedure Performed PFT Procedure Performed Spirometry with Pre/Post Bronchodilator Plethysmography (Lung Vol) Diffusing Cap (DLCO) Flow Vol Loop PFT Interpretation This is a pulmonary function test with pre and post-bronchodilator spirometry, plethysmography and diffusing capacity. The test was performed and results interpreted in accordance with the 2019 and 2005 ATS/ERS Task Force guidelines respectively using the Global Lung Function Initiative-2012 reference equations. Patient demonstrated good effort and cooperation. Reproducibility criteria were met. The quality of the pre bronchodilator spirometry maneuver was Grade A and post bronchodilator spirometry maneuver was Grade A. Findings: Spirometry: There is decreased maximal expiratory airflow at all lung volumes with a concave expiratory flow tracing. The contour the inspiratory flow tracing is normal. The pre bronchodilator FVC is 3.50 L, 76% predicted. The pre bronchodilator FEV1 is 1.64 L, 47% predicted. The pre bronchodilator FEV1: FVC ratio is 47%. The post bronchodilator FVC is 3.47 L, representing 1% decrease. The post bronchodilator FEV1 is 1.83 L, representing an 11% increase. The post bronchodilator FEV1: FVC ratio is 53%. Plethysmography: The total lung capacity is 7.72 L, 104% predicted. The functi onal residual capacity is 4.92 L, 124% predicted. The residual volume is 3.91 L, 154% predicted. Diffusing capacity: The diffusing capacity unadjusted for hemoglobin and carboxyhemoglobin is 18.4, 68% predicted. The diffusing capacity adjusted for alveolar volume is 3.30, 86% predicted. Impression: There is a severe obstructive abnormality without significant improvement after inhaling a single dose of albuterol. The increase in residual volume is consistent with air trapping from an obstructive abnormality. The diffusing capacity unadjusted for hemoglobin and carboxyhemoglobin is mildly decreased and normalizes when adjusted for alveolar volume. There are no prior studies for comparison
== END 2023-02-02 10:35 | disposition home or self-care (01) ==
LOC: ANHPFT 10:35
PROVIDERS: PCP Family Medicine; Visit Provider Nurse Practitioner Family
DX: R60.9 Edema, unspecified (principal); R06.02 Shortness of breath; R94.2 Abnormal results of pulmonary function studies
CPT/HCPCS: 94060; 94726; 94729

== ENCOUNTER 2023-02-09 11:15 | Outpatient (CLI) | payer OTHER, SELFPAY ==
--- NOTE | ~2023-02-09 | XR_ITS ---
AP and oblique views of the bilateral ribs, and PA and lateral chest radiographs Clinical History: Pain Findings: No rib fracture is seen. Osseous alignment is anatomic. Lungs are clear, without focal cons olidation or pleural effusion. Cardiomediastinal contour is within normal limits. Soft tissues are un remarkable. Impression: No rib fracture is seen. Clear lungs. Reviewed, dictated and finalized at location . Impression: No rib fracture is seen. Clear lungs.
== END 2023-02-09 11:16 | disposition home or self-care (01) ==
PROVIDERS: PCP Nurse Practitioner Family; Visit Provider Nurse Practitioner Family
DX: R05.9 Cough, unspecified (principal); R07.81 Pleurodynia
CPT/HCPCS: 71046; 71110

== ENCOUNTER 2023-07-25 13:26 | Outpatient (CLI) | payer OTHER, SELFPAY ==
--- NOTE | ~2023-07-25 | XR_ITS ---
EXAM: XR shoulder LT min 2V DATE: 07/25/2023 13:48 HISTORY: PAIN IN SHOULDER AFTER FALL 1 WEEK AGO . COMPARISON: X-ray RIBS 02/09/2023. FINDINGS: Normal mineralization. No fracture or dislocation. No lytic or blastic lesion. Mild osteoa rthritis at the AC joint and glenohumeral joint. No erosion or periosteal change. Soft tissues within normal limits. IMPRESSION: No acute osseous finding the left shoulder. Reviewed, dictated and finalized at location K. EWATER DESIGN ENGINEER
== END 2023-07-25 13:27 | disposition home or self-care (01) ==
PROVIDERS: PCP Nurse Practitioner Family; Visit Provider Nurse Practitioner Family
DX: M25.512 Pain in left shoulder (principal)
CPT/HCPCS: 73030

== ENCOUNTER 2023-07-26 13:17 | Outpatient (CLI) | payer OTHER, SELFPAY ==
--- NOTE | ~2023-07-26 | MR_ITS ---
MRI of the left shoulder Technique: Axial proton-density fat-sat images, coronal proton density fat-sat and T2 fat-sat images, and sagittal T1-weighted and T2 fat-sat images were acquired. Clinical History: Pain Findings: There is moderate AC joint degenerative change. Coracoclavicular, coracoacromial, and corac ohumeral ligaments are intact. There is a 4 mm focal moderate grade articular surface partial tear at the distal supraspinatus tendo n insertion. There is mild to moderate supraspinatus and infraspinatus tendinosis. Subscapularis tend on is intact, with mild to moderate tendinosis. Tendon of long head of the biceps is intact. There is superior labral tear, extending to the anterosuperior and posterior superior portions. There is additional extension to the posterior equator as well as the anterior equator. Inferior glenohumeral ligament is intact. There is minimal glenohumeral joint effusion. There is mild degenerative change at the inferior aspect of the glenohumeral joint. No fluid distention of the sub acromial/subdeltoid bursa. No muscle atrophy or edema. Possible loose body in the subscapularis reces s of the joint. Impression: Degenerative SLAP tear of the labrum, with additional extension to the equator anteriorly and posteri marcin. 4 mm focal moderate grade articular surface partial tear of the distal supraspinatus tendon insertion . Rotator cuff tendinosis, as above. Possible loose body at the subscapularis recess of the glenohumeral joint. Reviewed, dictated and finalized at [facility]. LOG LIBRARIAN Impression: Degenerative SLAP tear of the labrum, with additional extension to the equator anteriorly and posteriorly. 4 mm focal moderate grade articular surface partial tear of the distal supraspi natus tendon insertion. Rotator cuff tendinosis, as above. Possible loose body at the subscapularis recess of the glenohumeral joint.
== END 2023-07-26 13:18 | disposition home or self-care (01) ==
PROVIDERS: PCP Nurse Practitioner Family; Visit Provider Nurse Practitioner Family
DX: S43.432A Superior glenoid labrum lesion of left shoulder, initial encounter (principal)
CPT/HCPCS: 73221

== ENCOUNTER 2023-11-24 08:04 | Emergency (ER) | payer OTHER, SELFPAY ==
--- NOTE | ~2023-11-24 | XR_ITS ---
EXAMINATION: XR chest 2V DATE: 11/24/2023 08:30 INDICATION: Cough and shortness of breath. TECHNIQUE: Frontal and lateral views of the chest were obtained on 4 radiographs. COMPARISON: None. FINDINGS: There are airspace opacities in basilar left lower lobe. No pleural effusion or pneumothora x. The heart size is normal. IMPRESSION: 1. Airspace opacities in basilar left lower lobe, consistent with atelectasis versus pneumonia. Reviewed, dictated and finalized at location A. IMPRESSION: 1. Airspace opacities in basilar left lower lobe, consistent with atelectasis v ersus pneumonia.
--- NOTE | 2023-11-24 08:09 | ED.GENADULT ---
HPI - General Adult General Chief complaint: Upper Respiratory Infection Stated complaint: Bodyaches/Trouble Breathing/Cough Source: patient, RN notes reviewed and old records reviewed Mode of arrival: ambulatory Limitations: no limitations History of Present Illness HPI narrative: 68-year-old male presents to [facility] with complaints of cough, congestion, wheezing, shortness of breath, myalgia, headache, sore throat, fever that started 2 days ago. Patient states has been traveling in the [place]. Patient taking [id number] medications with little relief. Related Data Allergies Allergy/AdvReac Type Severity Reaction Status Date / Time No Known Allergies Allergy Verified 11/01/23 14:03 Review of Systems Constitutional: Constitutional: Reports no additional constitutional complaints, Reports body ache(s), Denies chills, Reports fatigue, Reports fever(s) and Reports headache(s) Eyes: Eyes: Reports no additional eye complaints and Denies blurry vision ENT: Reports system reviewed and no additional complaints, except as documented, Denies vertigo, Denies dizziness, Denies ear discharge, Denies otalgia, Denies facial pain, Denies headache(s), Reports nasal congestion, Reports nasal discharge, Denies sinus pain, Reports sinus pressure and Reports sore throat Cardiovascular: Cardiovascular: Reports no additional cardiovascular complaints, Denies chest pain, Denies chest pain at rest, Denies rapid heart rate and Reports dyspnea Respiratory: Respiratory: Reports no additional respiratory complaints, Reports chest congestion, Reports cough, Denies pain on inspiration, Denies pain with cough and Reports dyspnea Gastrointestinal: Gastrointestinal: Denies abdominal pain, Denies diarrhea, Denies nausea and Denies vomiting Integumentary/Breasts: Skin/Breast: Denies rash Neurologic: Reports system reviewed and no additional complaints, except as documented, Denies vertigo, Denies dizziness and Denies headache(s) Endocrine: Endocrine: Denies fatigue PMFSH Past Medical History Medical History Bilateral lower extremity edema Cancer of left ureter Chest skin lesion Chronic back pain Chronic pain of both knees COPD (chronic obstructive pulmonary disease) Elevated serum creatinine Essential (primary) hypertension History of colon polyps Hx of gout Hypothyroidism Lumbar spondylosis Medication monitoring encounter Mixed hyperlipidemia Squamous cell carcinoma of skin of chest Surgical History Surgical History H/O arthroscopic knee surgery Left knee H/O rectal polypectomy History of appendectomy (~1979) History of removal of pigmented skin lesion Hx of knee surgery Right leg surgery after impalement Family History Family History Father Carcinoma of colon Mother Patient's mother is Sibling Patient's sister is Cancer Patient's brother is Cancer Social History Social History Social History: The patient lives with his who is the durable power assistant prosecuting attorney for healthcare. The patient has 3 children. 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 The patient continues to smoke at least a pack a cigarettes a day. The patient admits to drinking wine or alcohol daily and the amount varies. Smoking packs per day: 1 Smoking cigarettes per day: 20.0 Years smoked: 1 Smoking pack-years: 1.00 Smoking status: Current some day smoker Tobacco type: cigarettes Second hand tobacco smoke exposure: Yes Additional smoking assessment comments: STATES QUIT FOR 35 YEARS & STARTED BACK ABOUT Alcohol intake: current Substance use: never Substance use type: does not use Lack of Transportati
[2023-11-24 08:19] VITALS: BP 145/89; PULSE 105; RESP 16; TEMP 38.2; O2SAT 95
== END 2023-11-24 08:51 | disposition home or self-care (01) ==
PROVIDERS: Emergency Provider Registered Nurse; PCP Nurse Practitioner Family
DX: J18.1 Lobar pneumonia, unspecified organism (principal); Z20.822 Contact with and (suspected) exposure to COVID-19; F17.210 Nicotine dependence, cigarettes, uncomplicated; J44.9 Chronic obstructive pulmonary disease, unspecified; I10 Essential (primary) hypertension; M10.9 Gout, unspecified; E03.9 Hypothyroidism, unspecified; E78.2 Mixed hyperlipidemia; Z85.54 Personal history of malignant neoplasm of ureter; Z85.828 Personal history of other malignant neoplasm of skin
CPT/HCPCS: 71046; 87426; 87804; 99213; G0463